=== PATIENT | female | born 1960 | race Caucasian/White ===

== ENCOUNTER 2019-10-24 07:34 | Emergency (ER) | payer SELFPAY ==
[~2019-10-24] VITALS: Ht 167.6 cm; Wt 83.2 kg
[~2019-10-24 07:34] MED LIST: AMOX/K CLAV500 MG PO; CETIRIZINE10 MG PO; CHERATUSSIN OR; CIPROFLOXACN500 MG PO; FLONASE NASAL50 MCG; FLUTICASONE50 MCG; ROCEPHIN 1 GM1 GM IM; ZITHROMAX250 MG PO; ZPAK OR
[2019-10-24] MEDS ORDERED: KEFLEX500 MG PO (08:17)
[2019-10-24 08:30] VITALS: BP 129/70
== END 2019-10-24 08:30 | disposition home or self-care (01) | DRG 156 ==
LOC: ED 07:34
DX: S01.24XA Puncture wound with foreign body of nose, initial encounter (principal); W26.8XXA Contact with other sharp object(s), not elsewhere classified, initial encounter; W45.8XXA Other foreign body or object entering through skin, initial encounter; W22.8XXA Striking against or struck by other objects, initial encounter